=== PATIENT | female | born 1965 | race Caucasian/White ===

== ENCOUNTER 2016-09-01 10:10 | Emergency (ER) | payer BC ==
[~2016-09-01] VITALS: Ht 160 cm; Wt 81.3 kg
[~2016-09-01 10:10] MED LIST: CITALOPRAM HBR20 M1 PO; CITALOPRAM HBR20 MG PO; IBUPROFEN800 MG PO; MOTRIN600 MG PO; NEXIUM40 MG PO; PRILOSEC20 MG PO; TYLENOL EXTRA500 MG PO; VICODIN 5-3001 EACH PO; VITAMIN B12-FO1 EACH PO; VITAMIN D5000 INTUN PO
[2016-09-01 11:23] LABS: HEMATOCRIT 39.8 % (36.0-46.0); MCH 29.1 PG (29.0-34.0); MCHC 34.4 G/DL (30.0-36.0); MCV 84.5 FL (83-99); MEAN PLAT.VOLUME 8.8 uM^3 (9.5-12.4); PLATELET COUNT 385 K/uL (156-360); RBC DIS.WIDTH-SD 39.5 % (39-53); RED BLOOD COUNT 4.71 M/uL (3.80-5.20); WHITE BLOOD COUNT 8.9 K/uL (4.1-10.2)
[2016-09-01 11:43] LABS: TROP-I INTERPRETATION NEGATIVE; TROPONIN-I < 0.01 ng/mL (0.0-0.30)
[2016-09-01 12:05] LABS: CHLORIDE 105 mEq/L (99-109); POTASSIUM 3.8 mEq/L (3.7-5.4); SODIUM 139 mEq/L (136-147)
[2016-09-01 12:07] LABS: GLUCOSE 82 mg/dL (70-99)
[2016-09-01 12:08] LABS: ANION GAP 10 MEQ/L (2-14)
[2016-09-01 12:11] LABS: GFR ESTIMATE (CALCULATED) > 59 mL/min/
[2016-09-01 12:12] LABS: UREA NITROGEN (BUN) 11 mg/dL (9-23)
[2016-09-01 13:48] LABS: ADD MIUA? YES; BILIRUBIN NEGATIVE; BLOOD NEGATIVE; COLOR YELLOW ((YELLOW)); GLUCOSE (STRIP) NEGATIVE; KETONES NEGATIVE; LEUKOCYTES MODERATE; NITRITE NEGATIVE; PROTEIN (STRIP) NEGATIVE; SPECIFIC GRAVITY 1.021 (1.000-1.030); UROBILINOGEN 0.2 MG/DL (0.2-1.0)
[2016-09-01 14:17] LABS: EPITHELIAL CELLS 2+; RED BLOOD CELLS 0-5 /HPF (0-5)
[2016-09-01 14:18] LABS: BACTERIA 3+; CASTS NONE SEEN /LPF; CRYSTALS NONE SEEN; MUCUS 1+; UCUL ADDED? YES
[2016-09-01 15:15] LABS: TROP-I INTERPRETATION NEGATIVE; TROPONIN-I < 0.01 ng/mL (0.0-0.30)
[2016-09-01 17:23] LABS: D-DIMER ELISA 0.38 mg/L FEU (< 0.57)
[2016-09-01] MEDS ORDERED: CIPRO500 MG PO (18:59)
[2016-09-01 19:31] VITALS: BP 116/85
== END 2016-09-01 19:52 | disposition home or self-care (01) ==
LOC: EME 10:10
PROVIDERS: Physician Assistant
DX: R07.9 Chest pain, unspecified (principal); N39.0 Urinary tract infection, site not specified; K21.9 Gastro-esophageal reflux disease without esophagitis
CPT/HCPCS: 71020; 80048; 81003; 84484; 85027; 85379; 87086; 93005; 99281; 99284